=== PATIENT | female | born 1965 | race Caucasian/White ===

== ENCOUNTER 2021-04-05 06:58 | Day surgery (SDC) | payer BC, OTHER ==
[2021-04-05] MEDS ORDERED: Dextrose 5%-Lactated Ringers 1,000 ML IV SCH (07:30)
[2021-04-05] MEDS ORDERED: Midazolam 1 MG/ML 2 ML SDV ONE (07:57)
[2021-04-05] MEDS ORDERED: Propofol 200 MG/20 ML SDV ONE (07:57)
[2021-04-05] MEDS ORDERED: fentaNYL 100 MCG/2 ML SDV ONE (07:57)
[2021-04-05] MEDS ORDERED: Glycopyrrolate 0.2 MG/ML 2 ML SDV IVPUSH ONE (08:15)
--- NOTE | 2021-04-20 12:33 | OR ---
DATE OF PROCEDURE: 04/05/2021 SURGEON: Byron Juarez MD PREOPERATIVE DIAGNOSIS: Status post laparoscopic adjustable gastric band placement with marked gastroesophageal reflux symptoms and ongoing regurgitation. POSTOPERATIVE DIAGNOSIS: Status post laparoscopic adjustable gastric band placement with marked esophageal dilation and multiple distal esophageal ulcers associated with retained liquid and solid food within the distal esophagus. OPERATIVE PROCEDURE: Esophagogastroduodenoscopy with antral biopsies for CLOtest. ANESTHESIA: IV sedation. INDICATIONS FOR PROCEDURE: This is a 56-year-old status post laparoscopic adjustable gastric band placement in 2005, presenting with worsening problems with ongoing reflux and regurgitation. She wakes up at times coughing up aspirated esophageal contents and has ongoing problems with reflux, for planned diagnostic evaluation. The patient is to undergo an upper endoscopy with biopsies as indicated. Potential risks including bleeding and perforation were discussed, and the patient wishes to proceed. DETAILS OF PROCEDURE: The patient was taken to the operating room and placed in a left lateral decubitus position. IV sedation was administered, after which the upper GI endoscope was passed orally through the length of the esophagus and stomach with retroflexion view of the fundus, and thereafter, through the pyloric channel into the proximal duodenum. Findings included some redness in the hypopharynx and larynx consistent with some ongoing aspiration and regurgitation. As one passed into the esophagus, it was diffusely dilated, and within the distal esophagus, there was some bilious liquid present with some solid food mixed within that. This was associated with marked inflammation of the distal esophagus with multiple linear ulcers extending up from the esophagogastric junction. The imprint of the band was in appropriate location, and there was no mechanical obstruction of the outlet through the imprint of the band. Within the stomach, retroflexion revealed no complications such as band erosion, and the remainder of the gastric and duodenal exams were unremarkable. At this point, biopsies were obtained from the antrum and sent for CLOtest for H pylori. The scope was then withdrawn and the procedure then concluded. The patient was taken to the recovery room in satisfactory condition. The patient would appear to clearly meet the indications for conversion from a band status to Cailin-en-Y gastric bypass, and her insurance carrier will be contacted regarding that issue. Byron Juarez MD /[id number]
== END 2021-04-05 09:43 | disposition home or self-care (01) ==
LOC: JP.SDS 06:58
PROVIDERS: ATTEND Surgery
DX: K22.10 Ulcer of esophagus without bleeding (principal); K21.9 Gastro-esophageal reflux disease without esophagitis; Z98.84 Bariatric surgery status
CPT/HCPCS: 43239; 87081; J2250; J2704; J3010; J3490; J7121